=== PATIENT | male | born 1965 | race Caucasian/White ===

== ENCOUNTER 2016-08-01 | Emergency (ER) | payer OTHER ==
[~2016-08-01] MED LIST: AMLODIPINE BESY10 MG PO; ATENOLOL PO; ATENOLOL50 MG PO; BACTROBAN22 GM; CLEOCIN HCL300 M1; CLINDAMYCIN HC300 MG; DOLOBID PO; FLAGYL PO; HCTZ PO; HYDROCODON-ACE1 EAC1 PO; HYDROCODON-ACE1 EAC7 PO; IBUPROFEN800 MG PO; LISINOPRIL PO; LISINOPRIL-HCTZ1 T15 PO; LISINOPRIL20 MG PO; LORTAB 10-5001 EACH; LORTAB 5/500 TA1 TA1 PO; MOBIC PO; NABUMETONE PO; NO MEDICATIONS; NORVASC PO; NORVASC10 MG PO; PEN-VEE K PO; PREDNISONE10 MG PO; TENORMIN25 M1 PO; TRAMADOL HCL50 M1 PO; ULTRAM PO; VICODIN 5/500 T1 TAB PO; VOLTAREN75 MG PO; XANAX0.5 MG PO; ZANTAC150 M1 PO
--- NOTE | ~2016-08-01 | CT52 ---
[facility] A Service [facility] RADIOLOGY TEXT RESULTS PATIENT: EVANS BEVERLY LOCATION: [place] : [birth year] UNIT #: [id number] AGE: [address]: Elaine Bah MD SEX: M ORDER DR: [id number] [facility] [address] [place], [place] [address] [id number] MR#: [id number] Acc #: [id number] NAME: EVANS BEVERLY. : 1965 SEX: M STUDY DATE/TIME: 08/01/2016 0:20 UNIT: [facility] ROOM: STUDY DESCRIPTION: CT Cervical Spine Wo Cont Attending Physician: Elaine Bah M.D. Ordering Physician: Elaine Bah M.D. Primary Care Physician: Jordan Cobos M.D. MEDICAL IMAGING REPORT This report is preliminary unless electronic signature is present EXAM CT cervical spine without contrast. INDICATION Right-sided neck pain after a fall today. PROCEDURE Unenhanced CT of the cervical spine. This CT exam was performed with one or more of the following radiation dose reduction techniques: automatic exposure control, adjustment of mA and/or kV according to patient size, and iterative reconstruction. COMPARISON 10/28/2010 FINDINGS Motion degraded. Cervical bodies maintain normal height. Degenerative change, most significant at C6-7. The craniocervical junction is intact. The dens is intact. No fracture. Refer to the separately dictated head CT for intracranial findings. No critical central canal narrowing. IMPRESSION Motion degraded study but no acute findings. Dictated by... Mick Borrero M.D. THIS IS AN ELECTRONICALLY VERIFIED REPORT Mick Borrero M.D. at 08/05/2016 7:23 AM EED/tmw [facility] A Service [facility] RADIOLOGY TEXT RESULTS PATIENT: EVANS BEVERLY LOCATION: [place] : [birth year] UNIT #: [id number] AGE: [address]: Elaine Bah MD SEX: M ORDER DR: TD: 08/01/2016 09:55 JOB #: [id number] MEDICAL IMAGING REPORT Page 1 of 1 COPY
--- NOTE | ~2016-08-01 | CT71 ---
[facility] A Service of [facility] RADIOLOGY TEXT RESULTS PATIENT: EVANS BEVERLY LOCATION: [place] : [birth year] UNIT #: [id number] AGE: [address]: Elaine Bah MD SEX: M ORDER DR: [id number] [facility] [address] [place], [place] [address] [id number] MR#: [id number] Acc #: [id number] NAME: EVANS BEVERLY. : 1965 SEX: M STUDY DATE/TIME: 08/01/2016 0:24 UNIT: [facility] ROOM: STUDY DESCRIPTION: CT Head Wo Contrast Attending Physician: Elaine Bah M.D. Ordering Physician: Elaine Bah M.D. Primary Care Physician: Jordan Cobos M.D. MEDICAL IMAGING REPORT This report is preliminary unless electronic signature is present EXAM CT head without contrast. INDICATION Right-sided head and neck pain after a fall today. PROCEDURE Unenhanced CT of the head. This CT exam was performed with one or more of the following radiation dose reduction techniques: automatic exposure control, adjustment of mA and/or kV according to patient size, and iterative reconstruction. COMPARISON 10/28/2010 FINDINGS Motion. There is extensive acute hemorrhage throughout the ventricles. Appears to be centered in the region of the left basal ganglia, where there is a hematoma measuring approximately 3.3 cm with localized mass effect. There is acute hemorrhage throughout the lateral ventricles, the third ventricle, and extending into the fourth ventricle. There is prominence of the ventricles compared with the previous study, suggesting some hydrocephalus. No definite extraaxial collection is seen when allowing for motion. IMPRESSION Acute hematoma centered in the left basal ganglia measuring up to 3.3 cm with extensive intraventricular extension throughout the ventricular system. Hydrocephalus. [facility] A Service [facility] RADIOLOGY TEXT RESULTS PATIENT: EVANS BEVERLY LOCATION: [place] : [birth year] UNIT #: [id number] AGE: [address]: Elaine Bah MD SEX: M ORDER DR: Dictated by... Mick Borrero M.D. THIS IS AN ELECTRONICALLY VERIFIED REPORT Mick Borrero M.D. at 08/05/2016 7:23 AM JOHAND/isai TD: 08/01/2016 09:51 JOB #: [id number] MEDICAL IMAGING REPORT Page 1 of 1 COPY
[2016-08-01 00:45] LABS: POC - CKMB 2.5 ng/mL (0.0-7.9); POC - TROPONIN <0.05 ng/mL (<=0.05)
[2016-08-01 00:55] LABS: BASOPHIL% 0.2 % (0-2.5); EOSINOPHIL% 0.1 % (0.0-7.0); HEMATOCRIT 46.5 % (38.0-50.0); HEMOGLOBIN 15.7 gm/dL (13.0-16.0); LYMPHOCYTE# 0.6 X10e3 (1.0-3.5); MEAN CELL VOLUME 87.6 FL (83-96); MEAN CORPUSCULAR HEMOGLOBIN 29.6 PG (28-34); MEAN CORPUSCULAR HGB CONC 33.8 g/dL (30-36); MEAN PLATELET VOLUME 10.3 FL (6.5-11.5); MONOCYTE# 0.3 X10e3 (0-1.0); MONOCYTE% 3.5 % (3.0-12.0); NEUTROPHIL# 8.5 X10e3 (1.5-7.1); NEUTROPHIL% 90.2 % (40-75); PLATELET COUNT 99 X10e3 (140-420); RED BLOOD COUNT 5.31 X10e (3.90-5.60); RED CELL DISTRIBUTION WIDTH 14.1 % (11.0-15.5); WHITE BLOOD COUNT 9.4 X10e3 (4.0-10.5)
[2016-08-01 00:56] LABS: INR 1.1; PARTIAL THROMBOPLASTIN TIME 25.4 SECONDS (23.5-31.3)
[2016-08-01 00:57] LABS: DIFF IND NO
[2016-08-01 01:28] LABS: ALBUMIN SERUM 4.5 g/dL (3.5-5.0); ALCOHOL BLOOD <5 mg/dL (0); ALKALINE PHOSPHATASE 114 U/L (32-92); ALT (SGPT) 70 U/L (10-40); AST (SGOT) 60 U/L (10-42); BILIRUBIN, DIRECT 0.2 mg/dL (0.0-0.2); BILIRUBIN,INDIRECT 0.6 mg/dL (0.0-0.9); BILIRUBIN,TOTAL 0.8 mg/dL (0.2-2.0); BLOOD UREA NITROGEN 18 mg/dL (9-23); BUN/CREATININE RATIO 16.36; CALCIUM SERUM 9.6 mg/dL (8.4-10.2); CARBON DIOXIDE 25 mmol/L (22-31); CHLORIDE 102 mmol/L (100-111); CPK (CREATINE PHOSPHOKINASE) 119 IU/L (36-174); CREATININE SERUM 1.1 mg/dL (0.6-1.4); GLUCOSE FASTING 203 mg/dL (70-110); MAGNESIUM 1.7 mg/dL (1.6-3.0); POTASSIUM 3.8 mmol/L (3.5-5.1); PROTEIN TOTAL SERUM 9.1 g/dL (6.0-8.3); SODIUM 138 mmol/L (135-145)
== END 2016-08-01 14:44 | disposition home or self-care (01) ==
LOC: CED
PROVIDERS: Emergency Medicine
DX: S06.359A Traumatic hemorrhage of left cerebrum with loss of consciousness of unspecified duration, initial encounter (principal); I10 Essential (primary) hypertension; F17.210 Nicotine dependence, cigarettes, uncomplicated; Z86.19 Personal history of other infectious and parasitic diseases; Z88.5 Allergy status to narcotic agent; W19.XXXA Unspecified fall, initial encounter; Y92.9 Unspecified place or not applicable
CPT/HCPCS: 31500; 36415; 70450; 72125; 80048; 80076; 82550; 82553; 83605; 83735; 84100; 84484; 85025; 85610; 85730; 87040; 96374; 96375; 99291; G0480; J0330; J1265; J2060; J2310